=== PATIENT | male | born 1950 | race Caucasian/White ===

== ENCOUNTER 2017-02-01 12:07 | Emergency (ER) | payer OTHER ==
[~2017-02-01] VITALS: Ht 180.3 cm; Wt 92.6 kg
[2017-02-01 12:22] VITALS: BP 125/70
== END 2017-02-01 14:10 | disposition home or self-care (01) ==
LOC: ED 12:07
DX: S61.412A Laceration without foreign body of left hand, initial encounter (principal); E03.9 Hypothyroidism, unspecified; I10 Essential (primary) hypertension; E78.5 Hyperlipidemia, unspecified; W22.8XXA Striking against or struck by other objects, initial encounter; Y93.89 Activity, other specified; Y99.8 Other external cause status; Y92.89 Other specified places as the place of occurrence of the external cause
CPT/HCPCS: J2001

== ENCOUNTER 2017-02-03 08:19 | Emergency (ER) | payer OTHER ==
[2017-02-03 09:00] VITALS: BP 152/88
== END 2017-02-03 09:00 | disposition home or self-care (01) ==
LOC: ED 08:19
DX: S61.412D Laceration without foreign body of left hand, subsequent encounter (principal); X58.XXXD Exposure to other specified factors, subsequent encounter; Y99.8 Other external cause status; Y92.89 Other specified places as the place of occurrence of the external cause